=== PATIENT | female | born 1970 | race African-American/Black ===

== ENCOUNTER 2016-12-12 11:27 | Inpatient (IN) | payer BC ==
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
[2016-12-12] MEDS ORDERED: morphine CARPU-JECT 2 MG/1 ML DISP.SYRIN IVPUSH ONE (12:14)
[2016-12-12 12:16] LABS: BASOPHIL 1.2 % (0-2.0); EOSINOPHIL 10.3 % (0-4.5); MCH 26.7 pg (25.7-33.7); MCHC 32.2 g/dl (32.0-36.0); MEAN CELL VOLUME 82.9 fl (80-96); MEAN PLT VOLUME 9.8 fl (7.5-11.1); NEUTROPHILS 47.3 % (42.8-82.8); PLATELET COUNT 194 K/MM3 (134-434); RDW 14.8 % (11.6-15.6); WHITE BLOOD COUNT 7.5 K/mm3 (4.0-10.0)
[2016-12-12] MEDS ORDERED: morphine CARPU-JECT 2 MG/1 ML DISP.SYRIN ONE (12:16)
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
[2016-12-12 12:47] LABS: ALBUMIN 3.1 g/dl (3.4-5.0); ALK PHOS 299 U/L (45-117); ANION GAP 9 (8-16); BILIRUBIN,TOTAL 0.2 mg/dL (0.2-1.0); CO2 28 mmol/L (21-32); CREATININE 0.9 mg/dL (0.55-1.02); GLUCOSE,RANDOM 93 mg/dL (74-106); SGOT/AST 38 U/L (15-37); SGPT/ALT 37 U/L (12-78); TOT PROT 6.7 g/dl (6.4-8.2)
[2016-12-12] MEDS ORDERED: METOCLOPRAMIDE HCL INJECTION 10 MG/2 ML VIAL IVPUSH ONE (15:37)
[2016-12-12] MEDS ORDERED: ACETAMINOPHEN 325 MG TABLET (FP) PO ONE (15:38)
[2016-12-12] MEDS ORDERED: ACETAMINOPHEN 325 MG TABLET (FP) ONE (15:47)
[2016-12-12] MEDS ORDERED: METOCLOPRAMIDE HCL INJECTION 10 MG/2 ML VIAL ONE (15:47)
[2016-12-12 18:25] VITALS: BMI 72.2
[2016-12-12] MEDS ORDERED: ALBUTEROL SO4 0.083% IH SOL 2.5 MG/3 ML VIAL.NEB. NEB PRN (18:45)
[2016-12-12] MEDS ORDERED: ACETAMINOPHEN 325 MG TABLET (FP) PO PRN (18:56)
[2016-12-12] MEDS: D5-1/2NS+20 MEQ KCL - 1,000 ML IV SCH ×2 (19:00→23:17)
[2016-12-12 21:35] LABS: THYROID STIMULATING HORMONE 2.02 uIU/ml (0.358-3.74)
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
[2016-12-12] MEDS: KETOROLAC TROMETHAMINE 30 MG/1 ML VIAL IVPUSH PRN (23:21)
[2016-12-12] MEDS: HEPARIN NA (PORCINE) 5,000 UNITS/ML 1ML VIAL SQ SCH (23:58)
[2016-12-13 00:29] LABS: URINE APPEARANCE CLEAR; URINE BILIRUBIN NEGATIVE (NEGATIVE); URINE BLOOD NEGATIVE (NEGATIVE); URINE COLOR LTYELLOW; URINE GLUCOSE (UA) NEGATIVE (NEGATIVE); URINE KETONE NEGATIVE (NEGATIVE); URINE LEUK ESTERASE NEGATIVE (NEGATIVE); URINE NITRITE NEGATIVE (NEGATIVE); URINE PROTEIN NEGATIVE (NEGATIVE); URINE UROBILINOGEN NEGATIVE E.U./dl (0.2-1.0)
[2016-12-13 07:20] LABS: EOSINOPHIL 10.2 % (0-4.5); MCH 27.2 pg (25.7-33.7); MCHC 33.1 g/dl (32.0-36.0); MEAN CELL VOLUME 82.1 fl (80-96); MEAN PLT VOLUME 9.7 fl (7.5-11.1); NEUTROPHILS 41.7 % (42.8-82.8); PLATELET COUNT 188 K/MM3 (134-434); RDW 14.7 % (11.6-15.6); WHITE BLOOD COUNT 6.6 K/mm3 (4.0-10.0)
[2016-12-13 07:56] LABS: ALBUMIN 2.8 g/dl (3.4-5.0); ANION GAP 8 (8-16); CALCIUM 8.2 mg/dL (8.5-10.1); CO2 29 mmol/L (21-32); GLUCOSE,RANDOM 90 mg/dL (74-106); SGPT/ALT 28 U/L (12-78)
[2016-12-13 07:58] LABS: ALK PHOS 250 U/L (45-117); BILIRUBIN,TOTAL 0.2 mg/dL (0.2-1.0); CREATININE 0.6 mg/dL (0.55-1.02); SGOT/AST 19 U/L (15-37); TOT PROT 6.2 g/dl (6.4-8.2)
[2016-12-13] MEDS ORDERED: DULoxetine HCL 20 MG CAPSULE.DR (FP) PO SCH (10:00)
--- NOTE | 2016-12-13 10:15 | EKG ---
Test Reason : Blood Pressure : / mmHG Vent. Rate : 066 BPM Atrial Rate : 066 BPM P-R Int : 154 ms QRS Dur : 078 ms QT Int : 360 ms P-R-T Axes : 030 012 059 degrees QTc Int : 377 ms NORMAL SINUS RHYTHM NONSPECIFIC T WAVE ABNORMALITY ABNORMAL ECG WHEN COMPARED WITH ECG OF 12-DEC-2016 12:33, NO SIGNIFICANT CHANGE WAS FOUND Confirmed by GLENYS PIMENTEL MD ([id number]) on 12/13/2016 10:15:24 AM Referred By: CATHY TURCIOS Confirmed By:GLENYS PIMENTEL MD
--- NOTE | 2016-12-13 10:38 | EKG ---
Test Reason : Blood Pressure : / mmHG Vent. Rate : 065 BPM Atrial Rate : 065 BPM P-R Int : 164 ms QRS Dur : 076 ms QT Int : 404 ms P-R-T Axes : 049 008 028 degrees QTc Int : 420 ms NORMAL SINUS RHYTHM NONSPECIFIC T WAVE ABNORMALITY ABNORMAL ECG WHEN COMPARED WITH ECG OF 29-SEP-2016 19:04, NO SIGNIFICANT CHANGE WAS FOUND Confirmed by GLENYS PIMENTEL MD ([id number]) on 12/13/2016 10:38:38 AM Referred By: Confirmed By:GLENYS PIMENTEL MD
[2016-12-13] MEDS: KETOROLAC TROMETHAMINE 30 MG/1 ML VIAL IVPUSH PRN (10:45)
[2016-12-13] MEDS: HEPARIN NA (PORCINE) 5,000 UNITS/ML 1ML VIAL SQ SCH ×2 (12:17→21:58)
[2016-12-13] MEDS: ALBUTEROL SO4 0.083% IH SOL 2.5 MG/3 ML VIAL.NEB. NEB SCH ×2 (14:00→18:13)
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
[2016-12-13 15:53] LABS: URINE MARIJUANA THC NEGATIVE ng/ml (CUTOFF=50)
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
[2016-12-13] MEDS ORDERED: PROMETHAZINE HCL 25 MG/1 ML VIAL IVPB PRN (16:00)
[2016-12-13] MEDS ORDERED: DEXAMETHASONE SOD PHOSPHATE 20 MG/5 ML VIAL IVPB ONE (16:01)
[2016-12-13] MEDS ORDERED: PROMETHAZINE HCL 25 MG/1 ML VIAL IVPUSH ONE (16:01)
[2016-12-13] MEDS ORDERED: KETOROLAC TROMETHAMINE 15 MG/ML VIAL IVPUSH ONE (16:02)
[2016-12-13] MEDS ORDERED: DEXAMETHASONE SOD PHOSPHATE 4 MG/1 ML VIAL IVPB ONE (16:15)
[2016-12-13] MEDS ORDERED: ALPRAZolam 2 MG TABLET PO ONE (20:15)
[2016-12-14] MEDS: ALBUTEROL SO4 0.083% IH SOL 2.5 MG/3 ML VIAL.NEB. NEB SCH ×2 (00:13→07:17)
[2016-12-14] MEDS: KETOROLAC TROMETHAMINE 30 MG/1 ML VIAL IVPUSH PRN (01:53)
[2016-12-14] MEDS ORDERED: KETOROLAC TROMETHAMINE 30 MG/1 ML VIAL IVPB ONE (06:30)
[2016-12-14 07:31] LABS: BASOPHIL 0.1 % (0-2.0); MCH 26.7 pg (25.7-33.7); MCHC 32.8 g/dl (32.0-36.0); MEAN CELL VOLUME 81.4 fl (80-96); NEUTROPHILS 88.5 % (42.8-82.8); PLATELET COUNT 205 K/MM3 (134-434); RDW 14.6 % (11.6-15.6); WHITE BLOOD COUNT 12.1 K/mm3 (4.0-10.0)
[2016-12-14 08:06] LABS: ALBUMIN 3.1 g/dl (3.4-5.0); ALK PHOS 243 U/L (45-117); ANION GAP 9 (8-16); BILIRUBIN,TOTAL 0.2 mg/dL (0.2-1.0); CALCIUM 8.7 mg/dL (8.5-10.1); CO2 25 mmol/L (21-32); CREATININE 0.6 mg/dL (0.55-1.02); GLUCOSE,RANDOM 175 mg/dL (74-106); SGOT/AST 14 U/L (15-37); SGPT/ALT 26 U/L (12-78); TOT PROT 6.8 g/dl (6.4-8.2)
[2016-12-14 10:00] VITALS: BP 122/84; PULSE 93; TEMP 97.7
[2016-12-14] MEDS ORDERED: MAGNESIUM OXIDE 400 MG TABLET (FP) PO SCH (10:00)
--- NOTE | 2016-12-14 15:09 | DS ---
Physical Examination Vital Signs: Vital Signs Temperature 97.7 F 12/14/16 08:00 Pulse Rate 93 H 12/14/16 08:00 Respiratory Rate 18 12/14/16 08:00 Blood Pressure 122/84 12/14/16 08:00 O2 Sat by Pulse Oximetry (%) 99 12/14/16 09:00 Constitutional: Yes: No Distress Eyes: Yes: WNL HENT: Yes: WNL Neck: Yes: WNL Cardiovascular: Yes: WNL Respiratory: Yes: WNL Gastrointestinal: Yes: WNL Renal/: Yes: WNL Extremities: Yes: WNL Edema: Yes Peripheral Pulses WNL: Yes Integumentary: Yes: WNL Wound/Incision: Yes: Clean/Dry Neurological: Yes: Other ...Motor Strength: LLE, RLE Psychiatric: Yes: Other Labs: CBC, BMP 12/14/16 06:00 12/14/16 06:00 Discharge Summary Reason For Visit: NEUROLOGICAL ABNORMALITY mri Procedures: Principal: ct scan Other Procedures: admitted r/o tia/cva/head trauma, neurology work-up, however patient knowing the risk signed out AMA Condition: Stable - Instructions Referrals: Marvin Alvarez MD [Primary Care Provider] - Disposition: AGAINST MEDICAL ADVICE - Home Medications Comprehensive Discharge Medication List: Ambulatory Orders Cholecalciferol (Vitamin D3) [Vitamin D3] 50,000 unit PO QUINTEROS 09/29/16 Epinephrine (Epi-Pen 0.3MG) [Epipen 0.3MG -] 0.3 mg IM PRN 09/29/16 Albuterol Sulfate Inhaler - [Ventolin HFA Inhaler -] 1 spray PRN PRN 12/12/16 Duloxetine HCl [Cymbalta] 60 mg PO BID 12/12/16 Aspirin [Valorie Chewable Aspirin] 1 tab PO DAILY 12/13/16 Atorvastatin Calcium 10 mg PO HS 12/13/16 Butalb/Acetaminophen/Caffeine [Fioricet 50-300-40 mg Capsule] 1 tab PO Q8H 12/13 Klonopin - 12/13/16 Metaxalone 400 mg PO Q8H 12/13/16 Metoclopramide HCl 5 mg PO BID 12/13/16 Montelukast Na [Singulair -] 10 mg PO HS 12/13/16 Morphine Sulfate 15 mg PO Q12H 12/13/16 Naloxegol Oxalate [Movantik] 12.5 mg PO AM 12/13/16 Oxycodone HCl/Acetaminophen [Percocet 10-325 mg Tablet] 1 each PO Q6H PRN MDD 4 tabs 12/13/16 Propranolol HCl 80 mg PO BID 12/13/16
== END 2016-12-14 10:45 | disposition left against medical advice (07) | DRG 103 ==
LOC: JER 11:27 → JERBED 16:36 → J7W 20:42
PROVIDERS: ADMIT Family Medicine; ATTEND Family Medicine
DX: F07.81 Postconcussional syndrome (principal); R29.818 Other symptoms and signs involving the nervous system; J45.909 Unspecified asthma, uncomplicated; M79.7 Fibromyalgia; I10 Essential (primary) hypertension; G89.29 Other chronic pain; G44.309 Post-traumatic headache, unspecified, not intractable
CPT/HCPCS: 36415; 70450-TC; 70544-TC; 70547-TC; 70551-TC; 71010-TC; 73110-TC-LT; 73130-TC-LT; 74177-TC; 80053; 80307; 81003; 82607; 84443; 84702; 84703; 85025; 87040; 87086; 93005; 93010; 94640; 97116-GP; 97161-GP; 99283-25; J1644

== ENCOUNTER 2018-09-18 06:18 | Day surgery (SDC) | payer BC ==
[2018-09-15 10:51] VITALS: BMI 40.5
[2018-09-18] MEDS ORDERED: BUPIVACAINE HCL/PF 0.5% (5MG/ML) 10 ML VIAL ONE (07:44)
[2018-09-18] MEDS ORDERED: CEFAZOLIN 2 GM/D5W 2 GM/50 ML ML IVPB ONE (07:49)
--- NOTE | 2018-09-18 07:53 | HP ---
History & Physical Update - History History: No Change Currently as noted:: 47yo female with fibroid uterus, pelvic pain and menorrhagia - Physical Physical: No Change - Assessment Assessment: No Change - Plan Plan: No Change Currently as noted:: TLH, cystoscopy
--- NOTE | 2018-09-18 09:25 | HP ---
Past Medical History - Primary Care Physician PCP:: Chay Fraga - Admission Chief Complaint: 47yo P2 with menometrorrhagia, fibroids, and morbid obesity, admitted for TLH and BSO. History of Present Illness: Pelvic pain, fibroid uterus, morbid obesity. Pt declined all conservative management options and requested to have surgical treatment. History Source: Patient, Medical Record Limitations to Obtaining History: No Limitations - Past Medical History Cardiovascular: Yes: HTN Pulmonary: Yes: Asthma, Sleep Apnea (resolved after bariatric surgery) Gastrointestinal: No: Ascites, Cancer, Constipation, Crohn's Disease, Diverticulitis, Diverticulosis, Esophageal Varices, Gastritis, GERD, GI Bleed, Hemorrhoids, Hiatal Hernia, Inflamatory Bowel Disease, Irritable Bowel Disease, Pancreatitis, Peptic Ulcer Disease, Ulcerative Colitis, Other Hepatobiliary: No: Cirrhosis, Cholelithiasis, Cholecystitis, Choledocholithiasis , Hepatitis A, Hepatitis B, Hepatitis C, Other Renal/: No: Renal Failure, Renal Inusuff, BPH, Cancer, Hematuria, Hemodialysis , Neurogenic Bladder, Renal Calculi, UTI, Other Reproductive: Yes: Fibroids ...Para: 2 (C/S x 2) Heme/Onc: No: Anemia, B12 Deficiency, Bleeding Disorder, Cancer, Current Chemotherapy, Current Radiation Therapy, Hemochromatosis, Hypercoaguable State, Myeloproliferative Synd, Sickle Cell Disease, Sickle Cell Trait, Thrombocytopenia, Other Infectious Disease: No: AIDS, C-Diff, Herpes Zoster, HIV, MRSA, STD's, Tuberculosis, VREF, Other Psych: No: Addictions, Anxiety, Bipolar, Depression, Panic, Psychosis, Schizophrenia, Other Musculoskeletal: No: Bursitis, Chronic low back pain, Hemiparesis, Hemiplegia, Osteoarthritis, Paraplegia, Other Rheumatology: Yes: Fibromyalgia ENT: No: Allergic Rhinitis, Sinusitis, Other Endocrine: No: Eric's Disease, Garret's Disease, Diabetes Insipidus, Diabetes Mellitus, Hyperparathyroidism, Hyperthyroidism, Hypothyroidism, Osteopenia, SIADH, Other Dermatology: No: Basal Cell, Cellulitis, Eczema, Melanoma, Psoriasis, Squamous Cell, Other - Past Surgical History Past Surgical History: Yes: Bariatric Surgery, Cholecystectomy, , Tubal Ligation Hx Myomectomy: No Hx Transabdominal Cerclage: No Additional Surgical History: right hand, left shoulder, left knee x 2, lower spine surgery - Smoking History Smoking history: Never smoked Have you smoked in the past 12 months: No - Alcohol/Substance Use Hx Alcohol Use: Yes (social) History of Substance Use: reports: None - Social History Usual Living Arrangement: Yes: With Spouse, With Significant Other ADL: Independent History of Recent Travel: Yes (at [employer]) Home Medications - Allergies Allergies/Adverse Reactions: Allergies Allergy/AdvReac Type Severity Reaction Status Date / Time Sulfa (Sulfonamide Allergy Mild Hives Verified 09/18/18 07:38 Antibiotics) latex Allergy Rash Verified 09/18/18 07:38 peanut Allergy Swelling Verified 09/18/18 07:38 avocado AdvReac Vomiting Verified 09/18/18 07:38 - Home Medications Home Medications: Ambulatory Orders Cholecalciferol (Vitamin D3) [Vitamin D3] 50,000 unit PO QUINTEROS 09/29/16 EPINEPHrine (EPI-PEN 0.3MG) [Epipen 0.3MG -] 0.3 mg IM PRN 09/29/16 Albuterol Sulfate Inhaler - [Ventolin HFA Inhaler -] 1 spray PRN PRN 12/12/16 Atorvastatin Calcium 10 mg PO HS 12/13/16 Metoclopramide HCl 5 mg PO BID 12/13/16 Montelukast Na [Singulair -] 10 mg PO HS 12/13/16 Propranolol HCl 80 mg PO BID 12/13/16 Family Disease History - Family Disease History Family History: Denies Review of Systems - Review of Systems Constitutional: reports: No Symptoms Eyes: reports: No Symptoms HENT: reports: No Symptoms Neck: reports: No Symptoms Cardiovascular: reports: No Symptoms Respiratory: reports: No Symptoms Gastrointestinal: reports: No Symptoms Genitourinary: reports: No Symptoms Breasts: reports: No Symptoms Reported Musculoskeletal: reports: No Symptoms Integumentary: reports: No Symptoms Neurological: reports: No Symptoms Endocrine: reports: No Symptoms Hematology/Lymphatic: reports: No Symptoms Psychiatric: reports: No Symptoms Pain Intensity: 0 Physical Exam-JOURNEYMAN MOLDER Vital Signs: Vital Signs Temperature 98.0 F 09/18/18 07:42 Pulse Rate 64 09/18/18 07:42 Respiratory Rate 18 09/18/18 07:42 Blood Pressure 122/76 09/18/18 07:42 O2 Sat by Pulse Oximetry (%) Constitutional: Yes: No Distress, Calm, Obese Eyes: Yes: WNL, Conjunctiva Clear, EOM Intact HENT: Yes: WNL, Atraumatic, Normocephalic Neck: Yes: WNL, Supple, Trachea Midline Cardiovascular: Yes: WNL, Regular Rate and Rhythm Respiratory: Yes: WNL, Regular, CTA Bilaterally Gastrointestinal: Yes: Normal Bowel Sounds, Soft, Abdomen, Obese ...Rectal Exam: Yes: Deferred Renal/: Yes: WNL Pelvis: Yes: WNL External Genitalia: Yes: Normal Internal Exam Deferred: No Vaginal Exam: Yes: Normal Cervix: Yes: Normal Uterus: Yes: Freely Moveable Musculoskeletal: Yes: WNL Extremities: Yes: WNL Edema: No Integumentary: Yes: WNL Neurological: Yes: WNL, Alert, Oriented ...Motor Strength: WNL Psychiatric: Yes: WNL, Alert, Oriented Imaging - Results Ultrasound: Report Reviewed Assessment/Plan 47yo P2 with menometrorrhagia, fibroids, and morbid obesity, admitted for TLH and BSO, cystoscopy, all indicated procedures. We had discussed the risks, benefits, alternatives of surgery at length including but not limited to infection, bleeding, scarring, perforation and/or injury to underlying organs, infertility, need for further surgery, postop complications, etc. The pt verbalized understanding and requested to proceed with surgery. I emphasized that all surgeries have risks and no guarantees can be provided
[2018-09-18] MEDS ORDERED: PROPOFOL 20 ML ONE ×3 (09:49→10:43)
[2018-09-18] MEDS ORDERED: MIDAZOLAM HCL 2 MG/2 ML SINGLE DOSE VIAL ONE (09:49)
[2018-09-18] MEDS ORDERED: LIDOCAINE HCL/PF 2% SDV 5ML VIAL ONE (09:49)
[2018-09-18] MEDS ORDERED: ROCURONIUM BROMIDE 50 MG/5 ML VIAL ONE ×2 (09:49→11:38)
[2018-09-18] MEDS ORDERED: fentaNYL CITRATE 250 MCG/5 ML VIAL ONE (09:49)
[2018-09-18] MEDS ORDERED: ceFAZolin SODIUM 1 GM VIAL ONE (10:11)
[2018-09-18] MEDS ORDERED: ceFAZolin SODIUM 1 GM VIAL IVPB ONE (10:20)
[2018-09-18] MEDS ORDERED: DEXAMETHASONE SOD PHOSPHATE 4 MG/1 ML VIAL ONE (10:43)
[2018-09-18] MEDS ORDERED: GLYCOPYRROLATE 0.2 MG/1 ML VIAL ONE (11:27)
[2018-09-18] MEDS ORDERED: BUPIVACAINE HCL/PF (5 MG/ML) 30 ML VIAL IJ ONE (12:10)
[2018-09-18] MEDS ORDERED: IBUPROFEN 800 MG/8 ML IJ IVPB PRN (12:43)
[2018-09-18] MEDS ORDERED: ONDANSETRON 4 MG/2 ML VIAL IVPUSH PRN (12:43)
--- NOTE | 2018-09-18 12:44 | OP ---
Operative Note - Note: Operative Date: 09/18/18 Pre-Operative Diagnosis: pelvic pain, menometrorhagia, fibroid uterus Operation: Total laparoscopic hysterectomy, BSO, CORINNE, cystoscopy Findings: Enlarged uterus, multiple dense adhesions of uterus and both ovaries and omentum to anterior abdominal wall. Uterus densely adherent to abdominal wall Post-Operative Diagnosis: Same as Pre-op Surgeon: Chay Fraga Steel Grinder: Gayathri Leslie Anesthesiologist/MACHINE PACKAGER: Aziza Harris Anesthesia: General Specimens Removed: Uterus w/cervix, bilateral tubes and ovaries Estimated Blood Loss (mls): 50 Drains & Tubes with Location: Howard cath Drains, Volume Out (mls): 50 Blood Volume Replaced (mls): 0 Fluid Volume Replaced (mls): 1,800 Operative Report Dictated: Yes
[2018-09-18] MEDS ORDERED: DOCUSATE SODIUM 100 MG CAPSULE (FP) PO PRN (12:58)
[2018-09-18] MEDS ORDERED: oxyCODONE HCL 5 MG TABLET PO PRN (12:58)
[2018-09-18] MEDS: HYDROmorphone HCl 2 MG/ML VIAL ONE ×2 (13:10→13:15)
[2018-09-18] MEDS: LACTATED RINGERS SOLUTION 1,000 ML IV SCH ×2 (14:00→21:58)
[2018-09-18] MEDS ORDERED: HYDROmorphone *PCA* 10MG/50ML DISP.SYRIN PCA SCH ×2 (14:45→17:00)
[2018-09-18] MEDS ORDERED: HYDROmorphone *PCA* 10MG/50ML DISP.SYRIN PCA ONE (16:36)
[2018-09-18] MEDS ORDERED: CEFAZOLIN 2 GM/D5W 2 GM/50 ML ML IVPB SCH (18:00)
[2018-09-18] MEDS: METOCLOPRAMIDE HCL 10 MG TABLET (FP) PO SCH ×2 (19:26→21:58)
--- NOTE | 2018-09-18 21:37 | OP ---
DATE OF OPERATION: 09/18/2018 PREOPERATIVE DIAGNOSES: Pelvic pain, menometrorrhagia, fibroid uterus, morbid obesity, asthma, hypertension, multiple previous abdominal surgeries, fibromyalgia. POSTOPERATIVE DIAGNOSES: Pelvic pain, menometrorrhagia, fibroid uterus, morbid obesity, asthma, hypertension, multiple previous abdominal surgeries, fibromyalgia. PROCEDURE: Total laparoscopic hysterectomy; bilateral salpingo-oophorectomy; lysis of dense, multiple, severe adhesions between omentum, uterus, bilateral ovaries and adnexa, pelvic sidewall, and anterior abdominal wall; and cystoscopy. SURGEON: Chay Fraga MD HEAD FILTER PRESS TENDER: Gayathri Leslie MD ANESTHESIOLOGIST: Aziza Harris MD ANESTHESIA: General endotracheal. COMPLICATIONS: None. ESTIMATED BLOOD LOSS: 50 mL URINE OUTPUT: Clear urine 50 mL. INTRAVENOUS FLUIDS: Crystalloid 1800 mL. PATHOLOGY: Uterus with cervix, bilateral fallopian tubes and ovaries. FINDINGS: Examination under anesthesia showed a small anteverted uterus. Laparoscopy revealed a slightly enlarged, anteverted uterus with no pelvic adnexal masses, normal ovaries bilaterally. Fallopian tubes were normal bilaterally with evidence of previous tubal ligation. The omentum was densely adherent to the anterior abdominal wall. The uterus was densely adherent to the anterior abdominal wall. The bilateral adnexa and ovaries densely adherent to the pelvic sidewall. A lot of scarring was noted between the bladder and left broad ligament as well as the anterior pelvic and abdominal wall. DESCRIPTION OF PROCEDURE: The patient was met preoperatively. Risks, benefits, and alternatives of surgery were discussed in details. All questions were answered. The patient requested to proceed with a total hysterectomy. She also specifically requested to remove both ovaries. We discussed risks, benefits, and alternatives of surgery in detail, as well as postoperative care and possible risks of complication. The patient verbalized her understanding and requested to proceed with the operation. We reviewed the consent form. The consent form was signed and witnessed. The patient was then brought to the OR with the IV running. She was placed on the surgical table in the supine position. The general anesthesia was achieved without difficulty. The patient was then placed in a dorsal lithotomy position using adjustable Phil stirrups. The patient was examined under anesthesia with the findings as described above. A VCare uterine manipulator was introduced inside the uterus without complications. A Howard catheter was inserted inside the bladder and left to drain to gravity. The timeout procedure was conducted as per standard protocol. The surgeons then proceeded with the operation. A 5-mm incision was made inside the umbilicus. A Veress needle was introduced through the umbilical incision and into the peritoneal cavity. Intraperitoneal placement was confirmed. Pneumoperitoneum was then produced with CO2 gas. The Veress needle was removed, and an Optiview trocar was placed through the umbilical incision into the peritoneal cavity under direct visualization. A survey of the abdomen and peritoneal cavity revealed the findings as described above. A second 5-mm incision was then placed in the right lower quadrant under direct visualization. A third 5-mm incision was made in the left lower quadrant, and a 5-mm trocar was introduced under direct visualization. A fourth 5-mm incision was made in the left mid-quadrant, and another trocar was inserted under direct visualization. A LigaSure bipolar cautery was then used to cauterize and ligate multiple adhesions, freeing up the visual field. Once we were able to visualize the pelvis, the uterus appeared within normal limits. However, the uterus was densely adherent to the anterior abdominal wall. The bladder and bilateral adnexa were also densely adherent to the pelvic sidewall as well as the anterior abdominal wall. The adhesions were lysed. The utero-ovarian ligament was then cauterized and transected on the left. The dissection was advanced caudally, and the left fallopian tube as well as the round ligament was ligated and transected with good hemostasis. The dissection then proceeded within the broad ligament caudally. The bladder was dissected away from the lower uterine segment. At that point, the dissection turned towards the uterus, and the uterus was dissected away from the anterior abdominal wall. The left uterine artery was isolated and skeletonized. The left uterine artery was then ligated and transected with good hemostasis. The attention was then turned to the right side. The right infundibulopelvic ligament was visible. It was ligated and transected with good hemostasis. The dissection then continued caudally within the broad ligament. The round ligament was dissected and identified. The round ligament was also cauterized and transected with good hemostasis. The left side of the bladder as well as the left adnexa was freed up from the pelvic sidewall and anterior abdominal wall. The bladder was dissected from the lower uterine segment and reflected downwards. The right uterine artery was then skeletonized and cauterized and transected with good hemostasis. The vaginal cuff was then identified along the colpotomizer, and the surgeons used a Harmonic scalpel to incise the vaginal cuff. The vaginal cuff was then incised circumferentially with good hemostasis. The uterus and the right fallopian tube and ovary were removed vaginally. The left ovary and fallopian tube were also then dissected, and the infundibulopelvic ligament was secured, cauterized, and transected with good hemostasis. The left ovary and fallopian tube were then also removed vaginally. The vaginal cuff was then grasped and closed using a V-Loc suture with good approximation and hemostasis. The operative site was irrigated, and once the irrigation solution was aspirated, good hemostasis was confirmed. At that point, the attention was turned to cystoscopy. The patient was given methylene blue. A cystoscopy was performed without complications. Both ureteral orifices were identified, and bilateral ureteral jets were confirmed without complications. The bladder survey revealed no lesions or trauma. The cystoscope was then removed, and a Howard catheter was inserted into the bladder. The Howard catheter was left to drain to gravity. The attention was once again turned to the patient's abdomen. All of the instruments were removed. The pneumoperitoneum was released. All of the incisions were closed. Sponge, lap, and instrument counts were correct. The patient was returned to supine position. The patient was then transferred to recovery room in stable condition and awake. She tolerated the procedure well. Zafar [id number]
[2018-09-18] MEDS ORDERED: MONTELUKAST NA 10 MG TABLET PO SCH (22:00)
[2018-09-19] MEDS ORDERED: ALBUTEROL SO4 8 GM HFA INHALER IH PRN (00:34)
[2018-09-19] MEDS ORDERED: diphenhydrAMINE HCL 25 MG CAPSULE (FP) PO ONE (00:45)
[2018-09-19] MEDS: CEFAZOLIN 2 GM in SODIUM CHLORIDE 100 ML IVPB SCH ×2 (02:01→10:14)
[2018-09-19] MEDS: LACTATED RINGERS SOLUTION 1,000 ML IV SCH (06:01)
[2018-09-19 09:25] VITALS: BP 115/65; PULSE 100; TEMP 98.5
[2018-09-19] MEDS ORDERED: PCA PUMP KEY 1 EACH EACH ONE (09:58)
[2018-09-19] MEDS ORDERED: ENOXAPARIN NA (PORCINE) 40 MG/0.4 ML DISP.SYRIN SQ SCH (10:00)
[2018-09-19] MEDS: METOCLOPRAMIDE HCL 10 MG TABLET (FP) PO SCH (10:32)
--- NOTE | 2018-09-21 17:03 | PATH ---
Surgical Pathology Report Patient Name: KEITH GARZON [facility]. Rec. #: [id number] /Age/Gender: 1970 (Age: 47) / F Account: [id number] Location: AMBULATORY SURG Taken: 09/18/2018 Received: 09/18/2018 Reported: 09/21/2018 Physicians: Chay Fraga M.D. Specimen(s) Received UTERUS WITH BILATERAL TUBES AND OVARIES Clinical History Fibroid uterus, pelvic pain Final Diagnosis UTERUS, CERVIX, BILATERAL OVARIES AND FALLOPIAN TUBES, TOTAL LAPAROSCOPIC HYSTERECTOMY AND BILATERAL SALPINGO-OOPHORECTOMY: PROLIFERATIVE ENDOMETRIUM. UNREMARKABLE MYOMETRIUM. FOCAL SUBSEROSAL ENDOMETRIOSIS. CERVIX WITH SQUAMOUS METAPLASIA. RIGHT FALLOPIAN TUBE WITH PARATUBAL CYSTS. LEFT FALLOPIAN TUBE WITH PARATUBAL CYSTS AND FIBROUS ADHESIONS. RIGHT OVARY WITH FOLLICULAR CYSTS. LEFT OVARY WITH FOLLICULAR CYST AND HEMORRHAGIC CORPUS LUTEUM. Comment: Immunohistochemical stain for CD10 performed at [place], [place] ([id number]) and interpreted at [facility] highlights focal endometrial stroma within subserosal nodule consistent with endometriosis. Electronically Signed Nori Wood M.D. Gross Description Received in formalin labeled "uterus and cervix, bilateral fallopian tubes, bilateral ovaries," is a 113 g hysterectomy specimen including a uterus, attached cervix and an attached right fallopian tube and right ovary. The left fallopian tube and left ovary are separately received within the same container. The specimen measures 10 cm from superior to inferior, 6 cm from left to right and 4.4 cm from anterior to posterior. The serosa is pink-joshi and smooth with a focal anterior defect. The attached cervix measures 3.7 cm in length and averages 2.5 cm in diameter. The ectocervix is pink-joshi, smooth and glistening. The endocervix is unremarkable. The endometrial cavity measures 4.2 cm in length and 3 cm from cornu to cornu. The endometrium is joshi-red and averages 0.1 cm in thickness. The myometrium is joshi-pink and averages 2 cm in thickness. There are 2 possible serosal nodules present measuring 0.5 and 1.0 cm in greatest dimension. The right fimbriated fallopian tube is previously ligated and measures 4.2 cm in length. The outer surface is joshi maxwell and smooth. Sectioning reveals an unremarkable lumen. The right ovary measures 3.0 x 2.1 x 1.2 cm. The outer surface is joshi-yellow and smooth. Sectioning reveals multiple serous cysts measuring up to 1.5 cm in greatest dimension. The remaining ovarian parenchyma is joshi-yellow and unremarkable. The separately received fimbriated left fallopian tube measures 1.0 cm in length and displays tubal ovarian adhesions. Sectioning reveals an unremarkable lumen. The left ovary measures 2.5 x 1.9 x 1.4 cm. The outer surface is joshi maxwell and smooth. Sectioning reveals a 0.9 cm in greatest dimension serous cyst as well as multiple hemorrhagic corpora lutea. The remaining ovarian parenchyma is joshi-yellow and unremarkable. Code Enforcement Officer sections are submitted in 15 cassettes as follows: 1-anterior cervix; 2-posterior cervix; 9-7-[id number] endomyometrium; 4-2-[id number] endomyometrium; 7-possible serosal nodules; 8-right fallopian tube fimbria; 9-cross sections of right fallopian tube; 10-right ovarian cysts; 11-additional right ovary; 12-left fallopian tube fimbria; 13-cross sections of left fallopian tube; 14-left ovarian cyst; 15-additional left ovary. 09/19/2018 [facility]09/19/2018
== END 2018-09-19 14:30 | disposition home or self-care (01) ==
LOC: JASUSAT 06:18 → J3W 14:15 → JASUSAT 09-19 14:30
PROVIDERS: ATTEND Obstetrics & Gynecology
PROC: 0UT7FZZ Resection of Bilateral Fallopian Tubes, Via Natural or Artificial Opening With Percutaneous Endoscopic Assistance (ICD-10-PCS; 2018-09-18)
PROC: 0UT9FZZ Resection of Uterus, Via Natural or Artificial Opening With Percutaneous Endoscopic Assistance (ICD-10-PCS; principal; 2018-09-18 08:00)
PROC: 0UT2FZZ Resection of Bilateral Ovaries, Via Natural or Artificial Opening With Percutaneous Endoscopic Assistance (ICD-10-PCS; 2018-09-18 08:00)
DX: N92.1 Excessive and frequent menstruation with irregular cycle (principal); D25.9 Leiomyoma of uterus, unspecified; E66.01 Morbid (severe) obesity due to excess calories; I10 Essential (primary) hypertension; J45.909 Unspecified asthma, uncomplicated; M79.7 Fibromyalgia
CPT/HCPCS: 36415; 71046-TC-FY; 84703; 86850; 86900; 86901; 88309-TC; 94760

== ENCOUNTER 2020-07-15 16:41 | Emergency (ER) | payer BC ==
[2020-07-15 16:51] VITALS: TEMP 98.3; BMI 34.2
--- NOTE | 2020-07-15 16:51 | PDOC ---
Rapid Medical Evaluation Time Seen by Provider: 07/15/20 16:44 Medical Evaluation: Allergies Allergy/AdvReac Type Severity Reaction Status Date / Time Sulfa (Sulfonamide Allergy Mild Hives Verified 07/15/20 16:44 Antibiotics) latex Allergy Rash Verified 07/15/20 16:44 peanut Allergy Swelling Verified 07/15/20 16:44 avocado AdvReac Vomiting Verified 07/15/20 16:44 Vital Signs Temp Pulse Resp BP Pulse Ox 98.3 F 83 20 154/82 100 07/15/20 16:44 07/15/20 16:44 07/15/20 16:44 07/15/20 16:44 07/15/20 16:44 07/15/20 16:49 CC: headache since yesterday with nose bleed, mild dizziness, went to urgent care clinic and had sub findings of blurry vision and paresthesia to lle. sent for eval Exam: vss, eomi, ambulatory without weakness Plan: head ct Discharge Disposition - Diagnosis Headache - Referrals - Patient Instructions - Post Discharge Activity
[2020-07-15] MEDS ORDERED: METOCLOPRAMIDE HCL INJECTION 10 MG/2 ML VIAL IVPUSH ONE (17:54)
[2020-07-15] MEDS ORDERED: diphenhydrAMINE HCL 25 MG CAPSULE (FP) PO ONE ×2 (17:54→18:23)
--- NOTE | 2020-07-15 17:58 | PDOC ---
History of Present Illness - General History Source: Patient Exam Limitations: No Limitations - History of Present Illness Initial Comments: 07/15/20 17:56 49-year-old female past medical history of asthma obesity fibromyalgia and hypertension presenting to the ED sent from urgent care complaining of headache for several months worsening over the last 2 days. Patient is also complaining of blurry vision and dizziness. Patient states that she was given Fioricet by her PCP which she took without relief. Headache not associated with lacrimation, fever, vomiting, photophobia or neck stiffness; not maximal intensity at onset and non-exertional at onset. Headache is located in the left occipital region. Pt otherwise denies: fevers, chills, syncope, lightheadedness, dizziness, neck pain, chest pain, shortness of breath, palpitations, back pain, abdominal pain, nausea, vomiting, diarrhea, constipation. <Russell Black - Last Filed: 07/15/20 18:57> <Tawanda Bernard - Last Filed: 07/17/20 14:20> - General Chief Complaint: Headache Stated Complaint: NOSE BLEED/SENT BY PCP Time Seen by Provider: 07/15/20 16:44 Past History - Medical History Anemia: Yes Asthma: Yes Cancer: No Cardiac Disorders: No COPD: No CHF: No HTN: Yes Hypercholesterolemia: Yes - Surgical History Abdominal Surgery: Yes Cholecystectomy: Yes Gastric Stapling: (GASTRIC BYPASS.) Orthopedic Surgery: Yes (lt. knee and lt. shouder sx. rt. pinky sugery, lt. wrist sx) - Reproductive History Is Patient Now?: No - Immunization History Immunization Up to Date: Yes - Psycho-Social/Smoking History Smoking History: Never smoked Have you smoked in the past 12 months: No - Substance Abuse Hx (Audit-C & DAST Scrn) How often the patient has a drink containing alcohol: Never Score: In Men: 4 or > Positive; In Women: 3 or > Positive: 0 Screen Result (Pos requires Nsg. Audit-10AR): Negative In the last yr the pt used illegal drug/Rx for NonMed reason: No Score: Yes response is considered Positive: 0 Screen Result (Positive result requires Nsg. DAST-10): Negative <Russell Black - Last Filed: 07/15/20 18:57> <Tawanda Bernard - Last Filed: 07/17/20 14:20> - Medical History Allergies/Adverse Reactions: Allergies Allergy/AdvReac Type Severity Reaction Status Date / Time Sulfa (Sulfonamide Allergy Mild Hives Verified 07/15/20 16:44 Antibiotics) latex Allergy Rash Verified 07/15/20 16:44 peanut Allergy Swelling Verified 07/15/20 16:44 avocado AdvReac Vomiting Verified 07/15/20 16:44 Home Medications: Ambulatory Orders Metoprolol Tartrate 0 mg PO DAILY 07/15/20 *Physical Exam - Vital Signs Last Vital Signs Temp Pulse Resp BP Pulse Ox 98.3 F 83 20 154/82 100 07/15/20 16:44 07/15/20 16:44 07/15/20 16:44 07/15/20 16:44 07/15/20 16:44 - Physical Exam 07/15/20 17:57 Gen: AAOx 3, no acute distress, comfortable, no signs of respiratory distress HENT: atraumatic, normocephalic with no laceration or contusion. Nasal mucosa without erythema. Oropharynx without erythema or exudates. Mucous membranes moist. EYES: PERRL, EOM intact, conjunctiva pink VA 20/70 B/L NECK: supple; trachea midline; no JVD, no lymphadenopathy, or thyromegaly CV: RRR no murmurs, gallops, or rubs. CHEST: CTA b/l no wheezing, rales or rhonchi ABD: +BS/ND. no TTP; soft, no rebound, no guarding EXTREMITY: no cyanosis or erythema. 2+ dorsalis pedis, posterior tibial, and ra dial pulse. No pedal edema; no calf swelling or tenderness SKIN: no rash, warm and dry, no diaphoresis HEME: no purpura or ecchymosis NEURO: normal speech, CN II-XII intact, sensation intact, normal gait, able to tip toe and heel walk, romberg and pronator drift absent, no cerebellar deficits, normal finger to nose, heel to casiano, rapid alternating movements, no tremor, no dysmetria MS: 5/5 strength in all extremities, FROM intact in all extremities. <Russell Black - Last Filed: 07/15/20 18:57> - Vital Signs Last Vital Signs Temp Pulse Resp BP Pulse Ox 98.3 F 72 20 154/73 100 09/01/20 16:44 07/15/20 20:54 07/15/20 20:54 07/15/20 20:54 07/15/20 20:54 <Tawanda Bernard - Last Filed: 07/17/20 14:20> ED Treatment Course - LABORATORY CBC & Chemistry Diagram: 07/15/20 18:00 07/15/20 18:00 <Russell Black - Last Filed: 07/15/20 18:57> - LABORATORY CBC & Chemistry Diagram: 07/15/20 18:00 07/15/20 18:00 - ADDITIONAL ORDERS Additional order review: 07/15/20 18:00 RBC 4.18 MCV 80.2 MCHC 31.9 L RDW 15.9 H MPV 10.9 Neutrophils % 49.8 D Lymphocytes % 32.7 D Monocytes % 11.2 H D Eosinophils % 5.1 H D Basophils % 1.2 D - RADIOLOGY Radiology Studies Ordered: Category Date Time Status BRAIN MRI-LIMITED(STROKE) [MRI] Stat MRI 07/15/20 18:27 Completed - Medications Given in the ED: ED Medications Discontinued Medications Generic Name Dose Route Start Last Admin Trade Name Freq PRN Reason Stop Dose Admin Diphenhydramine HCl 50 mg 07/15/20 17:54 07/15/20 18:33 Benadryl - PO 07/15/20 17:55 50 mg ONCE ONE Administration Sodium Chloride 1,000 mls @ 1,000 mls/hr 07/15/20 19:22 07/15/20 19:38 Normal Saline - IV 07/15/20 20:21 1,000 mls/hr ASDIR STA Administration Ketorolac Tromethamine 30 mg 07/15/20 18:18 07/15/20 18:33 Toradol Injection - IVPUSH 07/15/20 18:19 30 mg ONCE ONE Administration Lorazepam 1 mg 07/15/20 18:30 07/15/20 18:43 Ativan Injection - IVPUSH 07/15/20 18:31 1 mg ONCE ONE Administration Metoclopramide HCl 10 mg 07/15/20 17:54 07/15/20 19:20 Reglan Injection - IVPUSH 07/15/20 17:55 10 mg ONCE ONE Administration <Tawanda Bernard - Last Filed: 07/17/20 14:20> Medical Decision Making - Medical Decision Making 07/15/20 17:57 49-year-old female multiple comorbidities Vital signs stable however mildly hypertensive to 154/82 Will obtain EKG labs and CT head Administer Reglan and Benadryl Will reassess based on results No CT evidence of acute intracranial pathology Will obtain MRI brain limited CBC WBC 5.5 H&H 10.7/33.5 Due to shift change pt signed out to [facility] Shannon Hernandez pending MRI and lab results and reassessment. <Russell Black - Last Filed: 07/15/20 18:57> Discharge - Discharge Information Problems reviewed: Yes <Russell Black - Last Filed: 07/15/20 18:57> <Tawanda Bernard - Last Filed: 07/17/20 14:20> - Discharge Information Clinical Impression/Diagnosis: Headache Qualifiers: Headache type: unspecified Headache chronicity pattern: chronic headache Intractability: intractable Qualified Code(s): R51 - Headache Disposition: HOME - Follow up/Referral Referrals: Travon Red MD [Staff Physician] - Call tomorrow - Patient Discharge Instructions Patient Printed Discharge Instructions: Migraine -- Adult Additional Instructions: Drink plenty of fluids. Take Tylenol every 6 hours as needed for pain take ibuprofen every 6 hours as needed for pain it is important that you follow-up with a neurologist as soon as possible. A referral name has been given to you. Return to the emergency room for any worsening symptoms - Post Discharge Activity Work/Back to School Note: Back to Work
[2020-07-15] MEDS ORDERED: KETOROLAC TROMETHAMINE 30 MG/1 ML VIAL IVPUSH ONE (18:18)
[2020-07-15 18:19] LABS: BASO % 1.2 % (0-2.0); EOS % 5.1 % (0-4.5); HEMATOCRIT 33.5 % (32.4-45.2); HEMOGLOBIN 10.7 GM/dL (10.7-15.3); LYMPH % 32.7 % (8-40); MCH 25.6 pg (25.7-33.7); MCHC 31.9 g/dl (32.0-36.0); MEAN CELL VOLUME 80.2 fl (80-96); MEAN PLT VOLUME 10.9 fl (7.5-11.1); MONO % 11.2 % (3.8-10.2); NEUT % 49.8 % (42.8-82.8); PLATELET COUNT 218 K/MM3 (134-434); RBC 4.18 M/mm3 (3.60-5.2); RDW 15.9 % (11.6-15.6); WHITE BLOOD COUNT 5.5 K/mm3 (4.0-10.0)
[2020-07-15] MEDS ORDERED: KETOROLAC TROMETHAMINE 30 MG/1 ML VIAL ONE (18:23)
[2020-07-15] MEDS ORDERED: METOCLOPRAMIDE HCL INJECTION 10 MG/2 ML VIAL ONE (18:23)
[2020-07-15 18:27] LABS: INR 1.03 (0.83-1.09); PROTHROMBIN TIME (PATIENT) 12.1 SEC (9.7-13.0)
[2020-07-15] MEDS ORDERED: LORazepam 2 MG/ML SDV VIAL ONE (18:42)
[2020-07-15 18:57] LABS: ALBUMIN 3.2 g/dl (3.4-5.0); ALK PHOS 142 U/L (45-117); ANION GAP 5 MMOL/L (8-16); BILIRUBIN,TOTAL 0.2 mg/dL (0.2-1); BLOOD UREA NITROGEN 18.5 mg/dL (7-18); CALCIUM 8.3 mg/dL (8.5-10.1); CHLORIDE 108 mmol/L (98-107); CO2 29 mmol/L (21-32); CREATININE 0.8 mg/dL (0.55-1.3); GLUCOSE,RANDOM 79 mg/dL (74-106); SGOT/AST 38 U/L (15-37); SGPT/ALT 27 U/L (13-61); SODIUM 142 mmol/L (136-145); TOT PROT 6.9 g/dl (6.4-8.2)
--- NOTE | 2020-07-15 19:19 | PDOC ---
*Physical Exam - Vital Signs Last Vital Signs Temp Pulse Resp BP Pulse Ox 98.3 F 83 20 154/82 100 07/15/20 16:44 07/15/20 16:44 07/15/20 16:44 07/15/20 16:44 07/15/20 16:44 - Physical Exam General Appearance: Yes: Appropriately Dressed Respiratory/Chest: positive: Lungs Clear ED Treatment Course - LABORATORY CBC & Chemistry Diagram: 07/15/20 18:00 07/15/20 18:00 - ADDITIONAL ORDERS Additional order review: Laboratory Results 07/15/20 07/15/20 18:00 18:00 PT with INR 12.10 INR 1.03 Sodium 142 Potassium 5.0 Chloride 108 H Carbon Dioxide 29 Anion Gap 5 L BUN 18.5 H Creatinine 0.8 Est GFR (CKD-EPI)AfAm 100.33 Est GFR (CKD-EPI)NonAf 86.57 Random Glucose 79 Calcium 8.3 L Total Bilirubin 0.2 AST 38 H ALT 27 Alkaline Phosphatase 142 H Creatine Kinase 137 Troponin I < 0.02 Total Protein 6.9 Albumin 3.2 L 07/15/20 18:00 RBC 4.18 MCV 80.2 MCHC 31.9 L RDW 15.9 H MPV 10.9 Neutrophils % 49.8 D Lymphocytes % 32.7 D Monocytes % 11.2 H D Eosinophils % 5.1 H D Basophils % 1.2 D - Medications Given in the ED: ED Medications Discontinued Medications Generic Name Dose Route Start Last Admin Trade Name Freq PRN Reason Stop Dose Admin Diphenhydramine HCl 50 mg 07/15/20 17:54 07/15/20 18:33 Benadryl - PO 07/15/20 17:55 50 mg ONCE ONE Administration Ketorolac Tromethamine 30 mg 07/15/20 18:18 07/15/20 18:33 Toradol Injection - IVPUSH 07/15/20 18:19 30 mg ONCE ONE Administration Lorazepam 1 mg 07/15/20 18:30 07/15/20 18:43 Ativan Injection - IVPUSH 07/15/20 18:31 1 mg ONCE ONE Administration Medical Decision Making - Medical Decision Making 07/15/20 20:46 reports feeling better. MRI negative. will d/chhome with neurology follow up Discharge - Discharge Information Problems reviewed: Yes Clinical Impression/Diagnosis: Headache Qualifiers: Headache type: unspecified Headache chronicity pattern: chronic headache Intractability: intractable Qualified Code(s): R51 - Headache Disposition: HOME - Follow up/Referral Referrals: Travon Red MD [Staff Physician] - Call tomorrow - Patient Discharge Instructions Patient Printed Discharge Instructions: Migraine -- Adult Additional Instructions: Drink plenty of fluids. Take Tylenol every 6 hours as needed for pain take ibuprofen every 6 hours as needed for pain it is important that you follow-up with a neurologist as soon as possible. A referral name has been given to you. Return to the emergency room for any worsening symptoms - Post Discharge Activity Work/Back to School Note: Back to Work
[2020-07-15] MEDS ORDERED: SODIUM CHLORIDE 1,000 ML IV STA (19:22)
[2020-07-15 20:56] VITALS: BP 154/73; PULSE 72
== END 2020-07-15 21:08 | disposition home or self-care (01) ==
LOC: JER 16:41
PROC: 3E033NZ Introduction of Analgesics, Hypnotics, Sedatives into Peripheral Vein, Percutaneous Approach (ICD-10-PCS; principal; 2020-07-15)
PROC: 3E033GC Introduction of Other Therapeutic Substance into Peripheral Vein, Percutaneous Approach (ICD-10-PCS; 2020-07-15)
PROC: 3E0337Z Introduction of Electrolytic and Water Balance Substance into Peripheral Vein, Percutaneous Approach (ICD-10-PCS; 2020-07-15)
DX: R51 Headache (principal)
CPT/HCPCS: 36415; 70450-TC; 70551-TC; 80053; 82550; 84484; 85025; 85610; 99285-25

== ENCOUNTER 2021-02-03 17:26 | Emergency (ER) | payer BC ==
[2021-02-03 17:45] VITALS: TEMP 97.8; BMI 38.9
[2021-02-03 18:58] LABS: BASO % 0.5 % (0-2.0); EOS % 0.2 % (0-4.5); HEMATOCRIT 34.1 % (32.4-45.2); HEMOGLOBIN 10.8 GM/dL (10.7-15.3); LYMPH % 9.1 % (8-40); MCH 24.7 pg (25.7-33.7); MCHC 31.5 g/dl (32.0-36.0); MEAN CELL VOLUME 78.3 fl (80-96); MEAN PLT VOLUME 10.7 fl (7.5-11.1); MONO % 2.8 % (3.8-10.2); NEUT % 87.4 % (42.8-82.8); PLATELET COUNT 263 K/MM3 (134-434); RBC 4.35 M/mm3 (3.60-5.2); RDW 17.1 % (11.6-15.6); WHITE BLOOD COUNT 7.3 K/mm3 (4.0-10.0)
[2021-02-03 19:20] LABS: POTASSIUM 4.7 mmol/L (3.5-5.1)
[2021-02-03 19:24] LABS: ALBUMIN 3.2 g/dl (3.4-5.0); BLOOD UREA NITROGEN 17.4 mg/dL (7-18); CALCIUM 8.8 mg/dL (8.5-10.1)
[2021-02-03 19:28] LABS: BILIRUBIN,TOTAL 0.8 mg/dL (0.2-1); CREATININE 0.7 mg/dL (0.55-1.3); TOT PROT 6.9 g/dl (6.4-8.2)
[2021-02-03 21:44] VITALS: BP 149/88; PULSE 68
[2021-02-05 13:07] LABS: HEP B CORE AB, TOT Negative (Negative)
== END 2021-02-03 21:44 | disposition home or self-care (01) ==
LOC: JER 17:26
DX: R94.5 Abnormal results of liver function studies (principal)
CPT/HCPCS: 36415; 76705-TC; 80053; 80307; 85025; 86704; 86706; 86707; 86708; 86709; 86803; 87340; 93005; 93010; 99285-25